=== PATIENT | male | born 2005 | race Two or more races ===

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

== ENCOUNTER 2023-09-29 17:28 | Emergency (ER) | payer OTHER ==
[2023-09-29 17:54] VITALS: BP 130/74; PULSE 60; RESP 15; TEMP 97.7; BMI 21.2
[2023-09-29] MEDS ORDERED: DIPHTH,PERTUSS(ACELL),TET 0.5 ML DISP.SYRIN IM ONE (18:44)
[2023-09-29] MEDS: DIPHTH,PERTUSS(ACELL),TET 0.5 ML DISP.SYRIN IM ONE (18:49)
== END 2023-09-29 18:52 | disposition home or self-care (01) ==
LOC: FER 17:28
PROC: 0HQ0XZZ Repair Scalp Skin, External Approach (ICD-10-PCS; principal; 2023-09-29)
DX: S01.01XA Laceration without foreign body of scalp, initial encounter (principal); W01.198A Fall on same level from slipping, tripping and stumbling with subsequent striking against other object, initial encounter
CPT/HCPCS: 90715; 99283-25